=== PATIENT | male | born 1995 | race Two or more races ===

== ENCOUNTER 2018-11-27 22:44 | Emergency (ER) | payer SELFPAY ==
[2018-11-28] MEDS ORDERED: BENZONATATE 100 MG CAPSULE PO ONE (00:52)
--- NOTE | 2018-11-28 01:10 | RADIOLOGY REPORT (SQ) ---
EXAM DESCRIPTION: XR CHEST 2 VIEWS COMPLETED DATE/TME: 11/28/2018 00:27 CLINICAL HISTORY: 23 years, Male, cough COMPARISON: None. NUMBER OF VIEWS: 2 TECHNIQUE: Frontal and lateral views of the chest LIMITATIONS: None. FINDINGS: The heart size is normal. Low lung volumes. Slight fullness in the hilar regions bilaterally may reflect prominent vasculature, however adenopathy is not excluded. Lungs are otherwise clear. No pneumothorax. IMPRESSION: Low lung volumes. Slight fullness in the hilar regions for which adenopathy is not excluded. Continued follow-up recommended copyright 2010 [employer]- All Rights Reserved
[2018-11-28 02:37] VITALS: BP 165/70
--- NOTE | 2018-11-28 03:10 | ER Document Report ---
Entered by JUNIOR HERRERA SCRIBE 11/28/18 0146 Acting as scribe for:JAMES CHANCE DO ED General - General Chief Complaint: Cough Stated Complaint: BAD COUGH,NAUSEA,VOMITING Time Seen by Provider: 11/28/18 00:26 Mode of Arrival: Ambulatory Information source: Patient Notes: Patient is a 23 year old male presenting to the emergency department complaining of a cough onset 2 weeks ago. Patient states his cough has progressively worsened within the last few days and also complains of diarrhea the last 3 days. He described his cough as non productive to the point of gagging. He reports trying copious OTC medications further stating only Loraine' cough drops minimally relives his symptoms. He describes his diarrhea as very liquid like which but has recently "slowed down". He also complains of congestion and lower abdominal pain. He also states he has had some rectal bleeding but attributes this to hemorrhoids and frequent diarrhea. - Related Data Allergies/Adverse Reactions: No Known Allergies Allergy (Unverified 11/28/18 00:46) Past Medical History - General Information source: Patient - Social History Smoking Status: Never Smoker Chew tobacco use (# tins/day): No Frequency of alcohol use: Occasional Drug Abuse: None Family History: None Patient has suicidal ideation: No Patient has homicidal ideation: No Past Surgical History: Reports: Hx Appendectomy Review of Systems - Review of Systems Constitutional: No symptoms reported EENT: See HPI Cardiovascular: No symptoms reported Respiratory: See HPI, Cough Gastrointestinal: See HPI, Abdominal pain, Diarrhea Genitourinary: No symptoms reported Male Genitourinary: No symptoms reported Musculoskeletal: No symptoms reported Skin: No symptoms reported Hematologic/Lymphatic: No symptoms reported Neurological/Psychological: No symptoms reported -: Yes All other systems reviewed and negative Physical Exam - Vital signs Vitals: Temp Pulse Resp BP Pulse Ox 98.5 F 86 20 171/86 H 95 11/28/18 00:21 11/28/18 00:21 11/28/18 00:21 11/28/18 00:21 11/28/18 00:21 - Notes Notes: GENERAL: Alert, interacts well. No acute distress. HEAD: Normocephalic, atraumatic. EYES: Pupils equal, round, and reactive to light. Extraocular movements intact. ENT: Oral mucosa moist. Tongue midline, stained red, consistent with history of using cough drops frequently. Post nasal drip. Nares patent, no nasal septal hematoma, TM's intacts. NECK: Full range of motion. Supple. Trachea midline. LUNGS: Frequent wet cough. Decreased breath sounds in left lower lobe. Clear to auscultation bilaterally, no wheezes, rales, or rhonchi. No respiratory distress. HEART: Regular rate and rhythm. No murmurs, gallops, or rubs. ABDOMEN: Soft, non-tender. Non-distended. Bowel sounds present in all 4 quadrants. EXTREMITIES: Moves all 4 extremities spontaneously. NEUROLOGICAL: Alert and oriented x3. Normal speech. PSYCH: Normal affect, normal mood. SKIN: Warm, dry, normal turgor. No rashes or lesions noted. Course - Re-evaluation Re-evalutation: 11/28/18 01:50 Chest x-ray shows slight fullness in the hilar region, adenopathy cannot be excluded. Continued follow-up is recommended. Patient will be instructed to follow-up with his primary care physician and have a chest x-ray repeated in 6- 12 months. No indication for antibiotics at this time. Patient will be prescribed Tessalon Perles. Discharged home. - Vital Signs Vital signs: Temp Pulse Resp BP Pulse Ox 98.6 F 80 19 165/70 H 98 11/28/18 02:15 11/28/18 02:15 11/28/18 02:15 11/28/18 02:15 11/28/18 02:15 Discharge - Discharge Clinical Impression: Cough in adult patient Condition: Stable Disposition: HOME, SELF-CARE Additional Instructions: Today your chest x-ray did not show any signs of bacterial infection requiring antibiotics. It did show a slight fullness in the hilar region, this could represent enlarged lymph nodes. It is important that you have a repeat chest x- ray in 6-12 months to ensure that this is not getting bigger and that it is not a sign of cancer. Please continue to use [id number] cough drops as well as the Tessalon Perles 1 pill every 8 hours as needed for cough. You should also consider using nasal saline rinses such as a NetiPot or NeilMed Sinus Rinses. This will decrease the amount of mucus that runs down the back of your throat and triggers a cough. For the diarrhea you may use Imodium as directed on the box [id number]. Please return for difficulty breathing, fevers, blood in your sputum or blood in your stool or any new or concerning symptoms. Prescriptions: Benzonatate [Tessalon Perles 100 mg Capsule] 100 mg PO Q8HP PRN #40 capsule PRN Reason: Scribe Attestation: 11/28/18 03:09 I personally performed the services described in the documentation, reviewed and edited the documentation which was dictated to the scribe in my presence, and it accurately records my words and actions. I personally performed the services described in the documentation, reviewed and edited the documentation which was dictated to the scribe in my presence, and it accurately records my words and actions.
== END 2018-11-28 02:15 | disposition home or self-care (01) ==
LOC: ER 22:44
DX: R05 Cough (principal); R11.2 Nausea with vomiting, unspecified; R10.9 Unspecified abdominal pain; R19.7 Diarrhea, unspecified
CPT/HCPCS: 71046; 99283